=== PATIENT | male | born 1985 | race African-American/Black ===

== ENCOUNTER 2017-09-28 08:37 | Observation (INO) ==
[2017-09-28 09:31] LABS: Basophils # 0.1 10*3/uL (0.0-0.2); Eosinophils # 0.5 10*3/uL (0.0-0.87); Eosinophils % 9.2 % (0.00-10.9); Hematocrit 43.7 VOL% (42.0-52.0); Hemoglobin 14.4 GM/DL (14.0-18.0); Immature Granulocytes % 0.2 %; Immature Granulocytes Absolute 0.01 #; Lymphocytes % 38.8 % (21.2-54.2); Mean Corpuscular Hemoglobin 30 PG (27-34); Mean Platelet Volume 10.1 FL (9.6-12.0); Monocytes # 0.5 10*3/uL (0.11-0.8); Neutrophils # 2.1 10*3/uL (1.4-7.4); Neutrophils % 40.8 % (38.7-73.9); Platelet Count 297 T/CUMM (130-400); Red Blood Count 4.75 MC/CUMM (3.8-5.5); Red Cell Distribution Width 12.7 % (9.3-17.3)
[2017-09-28 09:53] LABS: Alanine Aminotransferase 20 U/L (16-61); Albumin 3.3 G/DL (3.4-5.0); Alkaline Phosphatase 69 U/L (45-117); Aspartate Amino Transferase 22 U/L (0-37); Blood Urea Nitrogen 10 MG/DL (7-18); Calcium 8.6 MG/DL (8.5-10.1); Glucose 92 MG/DL (74-106); Osmolality,Calculated 277.4 MOS/KG (273-304); Sodium 140 MMOL/L (136-145); Total Protein 7.2 G/DL (6.4-8.3); Troponin I Only < 0.015 NG/ML (0.00-0.045)
[2017-09-28 10:39] LABS: Barbiturates Screen,Urine Negative (Negative); Benzodiazepines Screen,Urine Negative (Negative); Cannabinoid Screen,Urine Positive (Negative); Opiate Screen,Urine Negative (Negative); Phencyclidine Screen,Urine Negative (Negative)
[2017-09-29 05:55] LABS: Hematocrit 39.5 VOL% (42.0-52.0); Hemoglobin 13.3 GM/DL (14.0-18.0); Immature Granulocytes % 0.9 %; Immature Granulocytes Absolute 0.11 #; Lymphocytes # 0.8 10*3/uL (1.4-4.0); Mean Corpuscular HGB Conc 33.7 GM/DL (32-36); Mean Corpuscular Hemoglobin 31 PG (27-34); Mean Platelet Volume 10.4 FL (9.6-12.0); Monocytes # 0.6 10*3/uL (0.11-0.8); Monocytes % 4.6 % (1.7-12.7); Neutrophils # 10.5 10*3/uL (1.4-7.4); Neutrophils % 87.5 % (38.7-73.9); Platelet Count 292 T/CUMM (130-400); Red Blood Count 4.34 MC/CUMM (3.8-5.5); Red Cell Distribution Width 12.9 % (9.3-17.3)
[2017-09-29 06:24] LABS: Calcium 9.4 MG/DL (8.5-10.1); Osmolality,Calculated 284.1 MOS/KG (273-304); Potassium 3.6 MMOL/L (3.5-5.1)
[2017-09-29 13:45] VITALS: BP 114/51
== END 2017-09-29 13:51 | disposition home or self-care (01) ==
LOC: N.EDINP 08:37 → N.ED 08:37 → N.5E 13:42
PROVIDERS: ADMIT Emergency Medicine; ATTEND Emergency Medicine

== ENCOUNTER 2018-05-01 21:59 | Observation (INO) ==
[2018-05-01] MEDS ORDERED: methylPREDNISolone SOD SUC 125 MG/2 ML VIAL ONE (22:22)
[2018-05-01] MEDS ORDERED: methylPREDNISolone SOD SUC 125 MG/2 ML VIAL IV STA (22:24)
[2018-05-01] MEDS ORDERED: ONDANSETRON 4 MG/2 ML VIAL IV STA (22:24)
[2018-05-01] MEDS ORDERED: ALBUTEROL 2.5 MG/3 ML NEB RESP TX SCH (22:30)
[2018-05-01 22:36] LABS: Basophils # 0.1 10*3/uL (0.0-0.2); Eosinophils % 9.8 % (0.00-10.9); Hematocrit 44.2 VOL% (42.0-52.0); Hemoglobin 14.5 GM/DL (14.0-18.0); Immature Granulocytes % 0.3 %; Immature Granulocytes Absolute 0.03 #; Lymphocytes % 19.7 % (21.2-54.2); Mean Corpuscular HGB Conc 32.8 GM/DL (32-36); Mean Corpuscular Hemoglobin 30 PG (27-34); Mean Corpuscular Volume 91.5 FL (87-102); Mean Platelet Volume 9.8 FL (9.6-12.0); Monocytes # 0.9 10*3/uL (0.11-0.8); Neutrophils % 60.2 % (38.7-73.9); Platelet Count 283 T/CUMM (130-400); Red Blood Count 4.83 MC/CUMM (3.8-5.5); Red Cell Distribution Width 12.9 % (9.3-17.3)
[2018-05-01 22:56] LABS: Bilirubin,Total 0.7 MG/DL (0.2-1.0); Calcium 9.2 MG/DL (8.5-10.1); Osmolality,Calculated 275.5 MOS/KG (273-304); Potassium 3.8 MMOL/L (3.5-5.1); Total Protein 7.9 G/DL (6.4-8.3)
[2018-05-02] MEDS ORDERED: ALBUTEROL/IPRATROPIUM 3 ML NEB RESP TX STA (00:49)
[2018-05-02] MEDS ORDERED: ONDANSETRON 4 MG/2 ML VIAL IV PRN (01:06)
[2018-05-02] MEDS ORDERED: ACETAMINOPHEN 325 MG TABLET PO PRN (01:06)
[2018-05-02] MEDS ORDERED: NICOTINE 7 MG/24 HR PATCH TRANSDERM PRN (01:09)
[2018-05-02] MEDS ORDERED: BENZONATATE 100 MG CAPSULE PO PRN (01:52)
[2018-05-02] MEDS ORDERED: INFLUENZA VIRUS VACCINE 0.5 ML SYRINGE IM ONE (02:02)
[2018-05-02] MEDS ORDERED: PNEUMOCOCCAL VACCINE (23 VALENT) 0.5 ML VIAL IM ONE ×2 (02:09→13:30)
[2018-05-02] MEDS: ALBUTEROL/IPRATROPIUM 3 ML NEB RESP TX SCH ×3 (03:47→10:43)
[2018-05-02] MEDS ORDERED: methylPREDNISolone SOD SUC 40 MG/1 ML VIAL IV SCH (06:00)
[2018-05-02 06:06] LABS: Basophils % 0.3 % (0.0-0.8); Eosinophils % 0.1 % (0.00-10.9); Hemoglobin 14.6 GM/DL (14.0-18.0); Immature Granulocytes % 0.5 %; Immature Granulocytes Absolute 0.05 #; Lymphocytes # 0.6 10*3/uL (1.4-4.0); Lymphocytes % 6.4 % (21.2-54.2); Mean Corpuscular HGB Conc 32.4 GM/DL (32-36); Mean Corpuscular Hemoglobin 30 PG (27-34); Mean Corpuscular Volume 92.2 FL (87-102); Mean Platelet Volume 10.1 FL (9.6-12.0); Monocytes # 0.1 10*3/uL (0.11-0.8); Neutrophils # 8.6 10*3/uL (1.4-7.4); Neutrophils % 91.7 % (38.7-73.9); Platelet Count 322 T/CUMM (130-400); Red Blood Count 4.88 MC/CUMM (3.8-5.5); Red Cell Distribution Width 12.9 % (9.3-17.3); White Blood Count 9.4 T/CUMM (4-12)
[2018-05-02 06:41] LABS: Calcium 9.4 MG/DL (8.5-10.1); Osmolality,Calculated 274.8 MOS/KG (273-304); Potassium 3.9 MMOL/L (3.5-5.1)
[2018-05-02 07:17] LABS: Band Neutrophils 8 % (0-10); Lymphocytes 6 % (20-55); Segmented Neutrophils 85 % (50-85); Total Cells Counted 100
[2018-05-02 07:18] LABS: Macrocytosis Slight; Platelet Estimate Normal
[2018-05-02] MEDS ORDERED: PANTOPRAZOLE 40 MG TABLET PO SCH (09:00)
[2018-05-02] MEDS ORDERED: AZITHROMYCIN 250 MG TABLET PO SCH (09:00)
[2018-05-02] MEDS ORDERED: predniSONE 20 MG TABLET PO ONE (10:22)
[2018-05-02 12:39] VITALS: BP 120/86
== END 2018-05-02 13:30 | disposition home or self-care (01) ==
LOC: N.EDINP 21:59 → N.ED 21:59 → N.2E 05-02 01:31
PROVIDERS: ADMIT Hospitalist; ATTEND Hospitalist